=== PATIENT | male | born 1985 | race Caucasian/White ===

== ENCOUNTER 2023-08-06 09:15 | Outpatient (CLI) | payer OTHER ==
[2023-08-06] MEDS ORDERED: Iopamidol 370 76% 100 ML VIAL ONE (09:26)
== END 2023-08-06 09:16 | disposition home or self-care (01) ==
LOC: CT 09:15
PROVIDERS: ATTEND Urology
DX: R31.29 Other microscopic hematuria (principal); R10.30 Lower abdominal pain, unspecified; N20.0 Calculus of kidney; M43.16 Spondylolisthesis, lumbar region; Z87.898 Personal history of other specified conditions
CPT/HCPCS: 74178; Q9967